=== PATIENT | female | born 1960 | race Caucasian/White ===

== ENCOUNTER → 2020-09-24 11:50 | Outpatient (CLI) | payer MEDICAID, SELFPAY ==
[2020-09-25 14:42] LABS: SARS-CoV-2 RNA PCR Negative
== END ==
PROVIDERS: PCP Family Medicine; Visit Provider Physician Assistant
DX: R05 Cough (principal); Z20.822 Contact with and (suspected) exposure to COVID-19
CPT/HCPCS: C9803; U0003; U0005

== ENCOUNTER → 2021-07-31 09:32 | Outpatient (CLI) | payer BC, SELFPAY ==
[2021-07-31 21:06] LABS: SARS-CoV-2 RNA PCR Positive
== END ==
PROVIDERS: PCP Family Medicine; Visit Provider Physician Assistant
DX: U07.1 COVID-19 (principal)
CPT/HCPCS: C9803; U0003; U0005

== ENCOUNTER 2025-06-06 11:08 | Emergency (ER) | payer OTHER, SELFPAY ==
--- NOTE | ~2025-06-06 | XR_ITS ---
EXAM/PROCEDURE: XR chest 2V HISTORY: Cough x 5 days, smoker, HX COPD COMPARISON: November 06, 2010 TECHNIQUE: Two view(s) of the chest. FINDINGS: LUNGS: Clear of acute processes. There is a focal nodular opacity overlying the left upper lung on the frontal view. PLEURAL SPACES: Clear. No evidence of fluid or pneumothorax. HEART/ MEDIASTINUM: Normal in appearance. SOFT TISSUES: No significant findings. BONES: No acute osseous abnormality. Multiple minimal wedging deformities in the thoracic spine, with a resultant minimal accentuation of the thoracic kyphosis. IMPRESSION: No acute findings. Nodular opacity as described. Chest CT is recommended for further evaluation. Reviewed, dictated and finalized at location [facility] IMPRESSION: No acute findings. Nodular opacity as described. Chest CT is recommended for fu rther evaluation.
--- NOTE | 2025-06-06 11:10 | ED.GENADULT ---
HPI - General Adult General Chief complaint: Upper Respiratory Infection Stated complaint: Cough Time Seen by Provider: 06/06/25 11:20 Source: patient, RN notes reviewed and old records reviewed Mode of arrival: ambulatory Limitations: no limitations History of Present Illness HPI narrative: 64-year-old female presents to the [facility] with complaints of a cough. Patient has a history of COPD, is a current smoker. Patient reports a productive cough for 5 days. Starts that she tried calling her primary care provider and was told to come to the urgent care to get a chest x-ray, amoxicillin and steroids. Has been taken ?left over? antibiotics for 3 days and no symptom improvement Patient reports that she does have enough nebulizer solution at home. Last time she used it was early this morning. Has not been using it on a regular basis. Onset (ago): day(s) (5) Related Data Home Medications ?Medication ?Instructions ?Recorded ?Confirmed ?Last Taken ?Type loratadine 10 mg tablet (Claritin) 10 mg PO DAILY 10/09/22 03/07/24 Unknown History Allergies Allergy/AdvReac Type Severity Reaction Status Date / Time No Known Allergies Allergy Mild Verified 06/06/25 11:33 Review of Systems Review of Systems: All systems reviewed & are unremarkable except as noted in HPI and below Constitutional: Constitutional: Reports no additional constitutional complaints ENT: Reports system reviewed and no additional complaints, except as documented Cardiovascular: Cardiovascular: Reports no additional cardiovascular complaints, Denies chest pain and Denies dyspnea Respiratory: Respiratory: Reports as per HPI, Denies chest congestion, Reports cough, Reports excessive phlegm production and Denies dyspnea Musculoskeletal: Musculoskeletal: Reports no additional musculoskeletal complaints Integumentary/Breasts: Skin/Breast: Reports system reviewed and no additional complaints, except as docu PMFSH Past Medical History Medical History Asthma COPD exacerbation Depression Post-menopausal Tobacco abuse Vitamin deficiency Surgical History Surgical History H/O: hysterectomy Family History Family History Mother Diabetes mellitus Family history of lung cancer Cerebrovascular accident Father Hepatic carcinoma Sibling Diabetes mellitus Breast cancer Social History Social History Smoking packs per day: 1 Smoking cigarettes per day: 20.0 Years smoked: 35 Smoking pack-years: 35.00 Smoking status: Current every day smoker Tobacco type: cigarettes Second hand tobacco smoke exposure: Yes Alcohol intake: former Substance use: never Substance use type: does not use Lack of Transportation: No Lack of Food: Never True Current Housing: I Have Housing Concerned About Future Housing: No Difficulty Paying Gas/Electric Bills: No Difficulty Paying for Meds: No Currently Unemployed: No Education: Bachelor's Degree Difficulty w/ Childcare or Family Care: No Living arrangements: alone Occupation/Education: occupation Gender identity (if verbalized by the patient): Female Comments At the time of my signature, I reviewed and agree with the nursing past medical, surgical, social, and family history. There is no relevant family history pertinent to the patient complaint. Exam Const: General: cooperative, healthy appearing, comfortable, no acute distress, well developed, alert and well nourished Nutritional Appearance: well nourished Orientation/consciousness: patient oriented x3 Limitations: no limitations HENMT: Head: normal to inspection Ears: hearing grossly normal bilaterally, external ears normal, TM's normal bilaterally, EAC's normal, mastoids normal and no periauricular adenopathy Mouth: Yes Normal oral and palatal mucosa present, Yes lip normal, Yes tongue normal and Yes moist mucous membranes Throat: uvula midline, postnasal drainage and no uvular edema Eyes: General: appearance normal, both eyes and all related structures Alignment and Position: alignment normal Neck: Neck: normal visual inspection, full ROM, no lymphadenopathy and no meningeal signs Chest: Chest palpation & inspection: normal inspection of the chest Resp: Effort & Inspection: normal respiratory effort and able to speak in complete sentences Auscultation: no crackles, no rales, no rhonchi, wheezes expiratory wheezes and scattered wheezes and diminished lung sounds bilateral throughout Cardio: Rate: regular rate Skin: General skin exam: normal color and no rashes or lesions noted Neuro: General: patient oriented x3, gait normal, moves all extremities and no meningeal signs Cognition (Neuro): normal cognition Speech: normal speech Gait exam (Neuro): Normal gait present Extrem: General: normal to inspection, full ROM, capillary refill normal and normal gait Psych: Appearance: grossly normal and well kempt Mental Status: mental status grossly normal Speech and movement: Normal speech and movement present and Clear speech present Affect: normal affect Attitude: cooperative Course Course Emergency Course: 1205, re-evaluated post breathing treatment. Lungs are clear test auscultation, breathing patient reports is much easier Level of Care: Express Care Visit Vital Signs Vital signs: Vital Signs Temperature 98.9 F 06/06/25 11:20 Pulse Rate 87 06/06/25 11:20 Respiratory Rate 16 06/06/25 11:20 Blood Pressure 124/70 06/06/25 11:20 Pulse Oximetry 96 06/06/25 11:20 Oxygen Delivery Room Air 06/06/25 11:20 Temperature 98.9 F 06/06/25 11:20 Pulse Rate 87 06/06/25 11:20 Respiratory Rate 16 06/06/25 11:20 Blood Pressure 124/70 06/06/25 11:20 Pulse Oximetry 96 06/06/25 11:20 Oxygen Delivery Room Air 06/06/25 11:20 Reviewed Medical Decision Making MDM Narrative Medical decision making narrative: Patient sitting comfortably in exam room. Patient is nontoxic, vitals stable. Patient presents with cough. History of COPD, is a current smoker. X-ray showed no signs of pneumonia however lung nodule. Discussed this with patient. Patient with most likely a COPD exacerbation. Will prescribe with antibiotic, encourage patient to stop smoking, use her nebulizer solution at least 3 times a day, steroid was prescribed. Discussed in detail signs and symptoms to proceed to the emergency room which she verbalized understanding. Discharge instructions reviewed with patient, as well as provided in writing per nursing staff. The instructions also include specific and strict return/GO TO THE ER as well as f/u information. All questions have been answered, and the patient deny any further questions with discharge and discharge plan. Some parts of this dictation were generated by voice recognition software and may contain typographical and/or grammatical inaccuracies. Differential Diagnosis Differential Diagnosis: COPD, bronchitis, pneumonia, URI Medical Records Medical records reviewed: Yes I reviewed the external patient's medical records. Vital Signs Vital Signs: Vital Signs Temperature 98.9 F 06/06/25 11:20 Pulse Rate 87 06/06/25 11:20 Respiratory Rate 16 06/06/25 11:20 Blood Pressure 124/70 06/06/25 11:20 Pulse Oximetry 96 06/06/25 11:20 Oxygen Delivery Room Air 06/06/25 11:20 Temperature 98.9 F 06/06/25 11:20 Pulse Rate 87 06/06/25 11:20 Respiratory Rate 16 06/06/25 11:20 Blood Pressure 124/70 06/06/25 11:20 Pulse Oximetry 96 06/06/25 11:20 Oxygen Delivery Room Air 06/06/25 11:20 Reviewed Lab Data Lab results reviewed: Yes I reviewed the patient's lab results. Labs: Reviewed Imaging Data Radiologist's impression: EXAM/PROCEDURE: XR chest 2V HISTORY: Cough x 5 days, smoker, HX COPD COMPARISON: November 06, 2010 TECHNIQUE: Two view(s) of the chest. FINDINGS: LUNGS: Clear of acute processes. There is a focal nodular opacity overlying the left upper lung on the frontal view. PLEURAL SPACES: Clear. No evidence of fluid or pneumothorax. HEART/ MEDIASTINUM: Normal in appearance. SOFT TISSUES: No significant findings. BONES: No acute osseous abnormality. Multiple minimal wedging deformities in the thoracic spine, with a resultant minimal accentuation of the thoracic kyphosis. IMPRESSION: No acute findings. Nodular opacity as described. Chest CT is recommended for further evaluation. Critical Care Time Critical Care Time Critical Care Time: No Discharge Plan Discharge Clinical Impression: COPD (chronic obstructive pulmonary disease), Left upper lobe pulmonary nodule, Tobacco abuse Patient Disposition: Home Condition: Stable Instructions: Antibiotic Form, COPD (Chronic Obstructive Pulmonary Disease) (ED), Pulmonary Nodules (ED) Additional Instructions: Please use nebulizer treatment 3 to 4 times a day while awake Take the steroid as prescribed Take the antibiotic as prescribed You should never have leftover antibiotics or take leftover antibiotics. Follow-up with your primary care provider for evaluation of the lung nodule. Lung nodules located in the left upper lobe. Radiologist is recommending a CT scan For new or worsening symptoms go directly to the ER Patient Language: Greek Prescriptions: New prednisone 50 mg tablet 50 mg PO DAILY Qty: 5 0RF doxycycline monohydrate 100 mg tablet 100 mg PO BID Qty: 14 0RF No Action loratadine [Claritin] 10 mg tablet 10 mg PO DAILY fluticasone propion-salmeterol [Advair Diskus] 250-50 mcg/dose blister with device 1 inh inhalation BID Qty: 60 5RF fluticasone propionate [Flonase Allergy Relief] 50 mcg/actuation spray,suspension 2 spray NASAL DAILY Qty: 16 5RF Rx Instructions: administer into each nostril albuterol sulfate 2.5 mg /3 mL (0.083 %) solution for nebulization 2.5 mg inhalation Q4-6H PRN (Reason: shortness of breath or wheezing) Qty: 180 0RF tiotropium bromide [Spiriva with HandiHaler] 18 mcg capsule, w/inhalation device 1 cap inhalation DAILY Qty: 90 1RF Rx Instructions: puncture 1 cap using device; one dose = 2 inhalations albuterol sulfate 90 mcg/actuation HFA aerosol inhaler 1 inh inhalation Q4H PRN (Reason: shortness of breath or wheezing) Qty: 8.5 3RF Follow-up/Referrals: Kavon,MD Haley [Primary Care Provider, [facility]] - 1 Week Clinical Impression: Left upper lobe pulmonary nodule; Tobacco abuse; COPD (chronic obstructive pulmonary disease) Time of Disposition: 12:12
[2025-06-06 11:20] VITALS: BP 124/70; PULSE 87; RESP 16; TEMP 37.2; O2SAT 96
[2025-06-06] MEDS: IPRATROPIUM 0.5 MG/ALBUTEROL SULFATE 2.5 MG (BASE) AMPUL.NEB 3 ML INHALATION (11:42)
== END 2025-06-06 12:18 | disposition home or self-care (01) ==
PROVIDERS: Emergency Provider Nurse Practitioner; PCP Family Medicine
DX: J44.9 Chronic obstructive pulmonary disease, unspecified (principal); R91.1 Solitary pulmonary nodule; F17.210 Nicotine dependence, cigarettes, uncomplicated
CPT/HCPCS: 71046; 94640; 99213; G0463